=== PATIENT | male | born 1990 | race Two or more races ===

== ENCOUNTER 2018-03-17 15:20 | Emergency (ER) | payer SELFPAY ==
[~2018-03-17] VITALS: Ht 180.3 cm; Wt 108.9 kg
--- NOTE | 2018-03-17 15:25 | NUR ---
PT ALISON FROM HOME TO ER BED 13 C/O EPIGASTRIC PAIN W/ NAUSEA AND VOMITING SINCE YESTERDAY. GOWNED AND PLACED AND ON MONITOR VSS. AWAITING MD SANTOS.
--- NOTE | 2018-03-17 15:41 | NUR ---
DR CHANDLER AT BEDSIDE FOR EVAL.
[2018-03-17] MEDS ORDERED: ONDANSETRON HCL/PF 4 MG/2 ML VIAL ONE (15:48)
[2018-03-17] MEDS ORDERED: MORPHINE SULFATE INJ 4 MG/ML DISP.SYRIN ONE (15:48)
--- NOTE | 2018-03-17 15:50 | NUR ---
PIPE PROCESSOR AT BEDSIDE FOR BLOOD DRAW.
[2018-03-17] MEDS: IV NS 0.9% 1,000 ML BAG IV ONE (15:53)
[2018-03-17] MEDS: MORPHINE SULFATE INJ 2 MG/ML DISP.SYRIN IV ONE (15:54)
[2018-03-17] MEDS: ONDANSETRON HCL/PF 4 MG/2 ML VIAL IVP ONE (15:54)
[2018-03-17 15:56] LABS: BASOPHILS % (AUTO) 0.3 % (0.0-2.0); HEMATOCRIT 44 % (39-51); HEMOGLOBIN 14.4 g/dL (13.5-17.5); LYMPHOCYTES # (AUTO) 0.8 /CMM (0.8-4.8); LYMPHOCYTES % (AUTO) 5.8 % (20.0-44.0); MEAN CORPUSCULAR HEMOGLOBIN 27 PG (26.0-33.0); MEAN CORPUSCULAR HGB CONC 33 g/dl (31.0-36.0); MEAN CORPUSCULAR VOLUME 83 fL (80-96); MONOCYTES # (AUTO) 0.5 /CMM (0.1-1.30); MONOCYTES % (AUTO) 3.6 % (2.0-12.0); NEUTROPHILS # (AUTO) 12.1 /CMM (1.8-8.9); NEUTROPHILS % (AUTO) 90.3 % (43.0-81.0); PLATELET COUNT (AUTO) 286 /CMM (150-450); RDW COEFFICIENT OF VARIATION 12.5 (11.5-15.0); WHITE BLOOD COUNT (AUTO) 13.4 K/uL (4.3-11.0)
[2018-03-17 16:06] LABS: CALCIUM, SERUM 9.6 mg/dL (8.5-10.1); CREATININE 1.1 mg/dL (0.6-1.3); POTASSIUM 3.7 mmol/L (3.5-5.1)
[2018-03-17 16:13] LABS: ALBUMIN 4.6 g/dL (3.4-5.0); BILIRUBIN,DIRECT 0.1 mg/dL (0.0-0.2); BILIRUBIN,TOTAL 0.5 mg/dL (0.2-1.0); TOTAL PROTEIN, SERUM 8.3 g/dL (6.4-8.2)
[2018-03-17] MEDS ORDERED: METOCLOPRAMIDE HCL 10 MG/2 ML VIAL ONE (17:03)
[2018-03-17] MEDS: METOCLOPRAMIDE HCL 10 MG/2 ML VIAL IV ONE (17:07)
--- NOTE | 2018-03-17 17:35 | NUR ---
U/S TECH AT BEDSIDE FOR GALLBLADDER ULTRASOUND.
--- NOTE | 2018-03-17 18:51 | NUR ---
FLUID CHALLENGE DONE. NO ACTIVE VOMITING NOTED. Patient discharged to home in stable condition. Written and verbal after care instructions given. Patient verbalizes understanding of instruction.IV removed. Catheter intact and site benign. Pressure and 4x4 applied to site. No bleeding noted.
[2018-03-17 18:52] VITALS: BP 148/87
== END 2018-03-17 18:53 | disposition home or self-care (01) ==
LOC: ER 15:22
DX: R10.13 Epigastric pain (principal); R11.2 Nausea with vomiting, unspecified; R74.0 Nonspecific elevation of levels of transaminase and lactic acid dehydrogenase [LDH]; I10 Essential (primary) hypertension
CPT/HCPCS: 36415; 76705-TC; 80048-TC; 80076-TC; 83690-TC; 85025-TC; A4606; J2270; J2405; J2765; J7030; Z7610